=== PATIENT | male | born 1950 | race Asian ===

== ENCOUNTER → 2019-11-08 | Outpatient (CLI) | payer MEDICARE ==
[2019-11-08 12:51] LABS: HEMOGLOBIN A1C 6.2 % (3.8-5.6)
[2019-11-08 13:00] LABS: FREE T4 (FREE THYROXINE) 1.54 ng/dL (0.76-1.46); THYROID STIMULATING HORMONE 4.19 uIU/mL (0.36-3.74)
== END | disposition home or self-care (01) ==
LOC: LABPV 09:29
PROVIDERS: ATTEND Internal Medicine Interventional Cardiology
DX: E07.9 Disorder of thyroid, unspecified (principal); E11.9 Type 2 diabetes mellitus without complications
CPT/HCPCS: 83036; 84439; 84443